=== PATIENT | male | born 1980 | race African-American/Black ===

== ENCOUNTER 2022-07-30 15:34 | Outpatient (CLI) | payer OTHER | END 2022-07-30 15:35 | disposition home or self-care (01) | LOC: DTY/OP 15:34 | PROVIDERS: ATTEND Surgery | DX: E66.01 Morbid (severe) obesity due to excess calories (principal) | CPT/HCPCS: 97802 ==

== ENCOUNTER 2022-08-21 15:24 | Outpatient (CLI) | payer OTHER | END 2022-08-21 15:25 | disposition home or self-care (01) | LOC: DTY/OP 15:24 | PROVIDERS: ATTEND Surgery | DX: E66.01 Morbid (severe) obesity due to excess calories (principal) | CPT/HCPCS: 97802 ==

== ENCOUNTER 2022-09-18 15:35 | Outpatient (CLI) | payer OTHER | END 2022-09-18 15:36 | disposition home or self-care (01) | LOC: DTY/OP 15:35 | PROVIDERS: ATTEND Surgery | DX: E66.01 Morbid (severe) obesity due to excess calories (principal) | CPT/HCPCS: 97802 ==

== ENCOUNTER 2022-10-22 15:37 | Outpatient (CLI) | payer OTHER | END 2022-10-22 15:38 | disposition home or self-care (01) | LOC: DTY/OP 15:37 | PROVIDERS: ATTEND Surgery | DX: E66.01 Morbid (severe) obesity due to excess calories (principal) | CPT/HCPCS: 97802 ==

== ENCOUNTER 2023-01-31 15:22 | Outpatient (CLI) | payer BC ==
[2023-01-31 16:34] LABS: Hemoglobin 13.2 g/dL (13.5-17.5); Mean Corpuscular HGB CONC 34.3 g/dL (32.0-36.0); Mean Corpuscular Hemoglobin 31.8 pg (27.0-33.0); Mean Corpuscular Volume 92.8 fl (81.2-95.1); Mean Platelet Volume 11.3 fl (7.4-10.4); Platelet Count 282 10x3/uL (150-450); RBC Distribution Width 12.5 % (11.5-14.5); Red Blood Cell (RBC) Count 4.15 10x6/uL (4.32-5.72); White Blood Cell (WBC) Count 5.2 10x3/uL (3.5-10.5)
[2023-01-31 16:37] LABS: MDiff Complete? YES
[2023-01-31 16:39] LABS: Anion Gap 19 mmol/L (10-20); BUN (Urea Nitrogen) 72 mg/dL (8.9-20.6); Calc. Creatinine Clearance 0 mL/min (70-130); Calcium 9.9 mg/dL (7.8-10.44); Carbon Dioxide 21 mmol/L (22-29); Chloride 101 mmol/L (98-107); Estimated GFR 35; Glucose 85 mg/dL (70-105); Potassium 5.6 mmol/L (3.5-5.1); Sodium 135 mmol/L (136-145)
[2023-01-31 17:15] LABS: Eosinophils 8 % (0-10); Lymphocytes 33 % (21-51); Monocytes 19 % (0-10); Neutrophil 40 % (42-75)
[2023-01-31 17:16] LABS: Platelet Adequacy Comment Appears Adequate; RBC Morph Comment Within Normal Limits
== END 2023-01-31 15:23 | disposition home or self-care (01) ==
LOC: LABBT 15:22
PROVIDERS: ATTEND Surgery
DX: Z01.812 Encounter for preprocedural laboratory examination (principal); E66.9 Obesity, unspecified
CPT/HCPCS: 80048; 85025; 93005; 93010

== ENCOUNTER 2023-01-31 15:30 | Inpatient (IN) | payer BC ==
[2023-01-31 16:05] VITALS: BMI 49.2
[2023-02-04] MEDS ORDERED: Sodium Chloride 0.9% 100 ML ONE (08:44)
[2023-02-04] MEDS ORDERED: Heparin 5,000 UNITS/ML VIAL ONE (08:44)
[2023-02-04] MEDS ORDERED: CEFAZOLIN 2 GM VIAL ONE (08:44)
[2023-02-04] MEDS ORDERED: Sevoflurane 250 ML INH ANEST BOTTLE ONE (08:48)
[2023-02-04] MEDS ORDERED: EPINEPHrine 1 MG/ML AMP ONE (10:27)
[2023-02-04] MEDS ORDERED: Bupivacaine 0.25% HCL 30 ML VIAL ONE (10:27)
[2023-02-04] MEDS ORDERED: fentaNYL PF 100 MCG/2 ML SYRINGE ONE (10:46)
[2023-02-04] MEDS ORDERED: Ketamine 50 MG/ML (10ML VIAL) ONE (10:46)
[2023-02-04] MEDS ORDERED: SUGAMMADEX SODIUM 200 MG/2 ML VIAL ONE (10:47)
[2023-02-04] MEDS ORDERED: Propofol 500 MG/50 ML VIAL ONE (10:47)
[2023-02-04] MEDS ORDERED: Ondansetron PF 4 MG/2 ML Vial ONE (10:57)
[2023-02-04] MEDS ORDERED: Dexamethasone 20 MG/5 ML VIAL ONE (10:57)
[2023-02-04] MEDS ORDERED: Esmolol 100 MG/10 ML VIAL ONE (10:57)
[2023-02-04] MEDS ORDERED: Rocuronium Bromide 10 MG/ML (10ML VIAL) ONE (10:57)
[2023-02-04] MEDS ORDERED: Lidocaine 1% PF 5 ML VIAL ONE (10:57)
[2023-02-04] MEDS ORDERED: PHENYLEPHRINE-NS 100 MCG/ML 10 ML SYRINGE ONE (10:57)
[2023-02-04] MEDS ORDERED: PROPOFOL 200 MG/20 ML VIAL ONE (10:57)
[2023-02-04] MEDS ORDERED: diphenhydrAMINE 50 MG/ML VIAL IVP PRN ×2 (12:08→13:22)
[2023-02-04] MEDS ORDERED: Promethazine HCl 25 MG/ML VIAL IM PRN ×3 (12:08→13:22)
[2023-02-04] MEDS ORDERED: Ondansetron PF 4 MG/2 ML Vial IVP PRN ×2 (12:08→13:22)
[2023-02-04] MEDS ORDERED: diphenhydrAMINE 50 MG/ML VIAL IM PRN (12:08)
[2023-02-04] MEDS ORDERED: diphenhydrAMINE 25 MG CAP PO PRN (12:08)
[2023-02-04] MEDS ORDERED: Naloxone HCl 0.4 mg/ml Vial IV PRN (12:08)
[2023-02-04] MEDS ORDERED: Ondansetron HCl/PF 4 MG/2 ML Vial IVP PRN (12:08)
[2023-02-04] MEDS ORDERED: FENTANYL 500 MCG/10 ML VIAL 2,000 MCG in Sodium Chloride 0.9% 60 ML IV PRN (12:08)
[2023-02-04] MEDS ORDERED: Communication Order-Pharmacy FS SCH (12:15)
[2023-02-04] MEDS ORDERED: Glucagon 1 MG/ML KIT IM PRN (13:22)
[2023-02-04] MEDS ORDERED: Ipratropium/Albuterol 3 ML NEB NEB PRN (13:22)
[2023-02-04] MEDS ORDERED: hydrALAZINE 20 MG/ML VIAL SLOW IVP PRN (13:22)
[2023-02-04] MEDS ORDERED: Hydrocodone-Acetamin 15 ML UDCUP PO PRN (13:22)
[2023-02-04] MEDS ORDERED: Dextrose 5% in Water 1,000 ML IV PRN (13:22)
[2023-02-04] MEDS ORDERED: Dextrose 50% Abboject 50 ML SYRINGE SLOW IVP PRN (13:22)
[2023-02-04] MEDS ORDERED: Acetaminophen 650 MG/20.3 ML UDCUP PO PRN (13:25)
[2023-02-04] MEDS ORDERED: D5 1/2 NS w/20 mEq KCL 1,000 ML ONE (15:06)
[2023-02-04] MEDS: D5 1/2 NS w/20 mEq KCL 1,000 ML IV SCH ×2 (15:12→20:00)
[2023-02-04] MEDS: Simethicone Chewable 80 MG TAB PO PRN (17:21)
[2023-02-05] MEDS: Simethicone Chewable 80 MG TAB PO PRN (01:54)
[2023-02-05] MEDS: Hydrocodone-Acetamin 15 ML UDCUP PO PRN ×2 (05:55→10:08)
[2023-02-05] MEDS: D5 1/2 NS w/20 mEq KCL 1,000 ML IV SCH ×2 (06:30→13:20)
[2023-02-05 08:19] LABS: #Monocytes 1.3 thou/uL (0.11-0.59); #Neutrophils 5.2 thou/uL (1.40-6.50); %Lymphocytes 18.4 % (21.0-51.0); %Monocytes 15.8 % (0.0-10.0); %Neutrophils 65.5 % (42.0-75.0); Mean Corpuscular HGB CONC 33.7 g/dL (32.0-36.0); Mean Corpuscular Hemoglobin 31.5 pg (27.0-31.0); Mean Corpuscular Volume 93.4 fl (78.0-98.0); Mean Platelet Volume 11.3 fL (7.4-10.4); Platelet Count 265 10x3/uL (130-400); RBC Distribution Width 12.6 % (11.5-14.5); Red Blood Cell (RBC) Count 3.81 mill/uL (4.70-6.10); White Blood Cell (WBC) Count 7.9 10x3/uL (4.8-10.8)
[2023-02-05 08:46] LABS: Anion Gap 14 mmol/L (10-20); BUN (Urea Nitrogen) 33 mg/dL (8.9-20.6); Calc. Creatinine Clearance 112 mL/min (70-130); Calcium 9.4 mg/dL (7.8-10.44); Carbon Dioxide 24 mmol/L (22-29); Chloride 101 mmol/L (98-107); Estimated GFR 48; Glucose 94 mg/dL (70-105); Potassium 4.6 mmol/L (3.5-5.1); Sodium 134 mmol/L (136-145)
[2023-02-05] MEDS ORDERED: Lisinopril/Hydrochlorothiazide 20/25 mg Tablet PO SCH (09:00)
[2023-02-05] MEDS ORDERED: Furosemide 20 MG TAB PO SCH (09:00)
[2023-02-05] MEDS ORDERED: Pantoprazole 40 MG VIAL IVP SCH (09:00)
[2023-02-05 12:51] VITALS: BP 148/83; TEMP 98.2
== END 2023-02-05 14:14 | disposition home or self-care (01) | DRG 621 ==
LOC: SURG A 02-04 08:01 → SJJU 02-04 19:48
PROVIDERS: ADMIT Surgery; ATTEND Surgery
PROC: 0DB64Z3 Excision of Stomach, Percutaneous Endoscopic Approach, Vertical (ICD-10-PCS; principal; 2023-02-04)
PROC: 8E0W4CZ Robotic Assisted Procedure of Trunk Region, Percutaneous Endoscopic Approach (ICD-10-PCS; 2023-02-04)
DX: E66.01 Morbid (severe) obesity due to excess calories (principal); M19.90 Unspecified osteoarthritis, unspecified site; E78.00 Pure hypercholesterolemia, unspecified; I10 Essential (primary) hypertension; Z68.42 Body mass index [BMI] 45.0-49.9, adult
CPT/HCPCS: 36415; 80048; 85025; 88307; C9113; J0171; J1100; J1644; J1650; J2405; J2704; J3480; J3490; S0020